=== PATIENT | male | born 1965 | race African-American/Black ===

== ENCOUNTER 2016-08-11 14:53 | Inpatient (IN) | payer MEDICAID ==
[~2016-08-11] VITALS: Ht 177.8 cm; Wt 109.8 kg
[2016-08-11 17:23] LABS: BASOPHILS % 1.3 % (0.0-2.0); EOSINOPHILS % 1.6 % (0.0-5.0); HEMATOCRIT. 45.1 % (42.0-52.0); HEMOGLOBIN. 14.3 g/dL (14.0-18.0); LYMPHOCYTES % 34.8 % (20.0-50.0); MEAN CORPUSCULAR HEMOGLOBIN 20.4 pg (28.0-32.0); MEAN CORPUSCULAR VOLUME 64.4 fL (80.0-94.0); MEAN PLATELET VOLUME 9.4 fl (7.4-10.4); MONOCYTES % 7.6 % (2.0-8.0); NEUTROPHILS % 54.7 % (40.0-76.0); PLATELET 115 x1000/uL (130-400); RED BLOOD CELL COUNT 7.01 mill/uL (4.7-6.1); RED CELL DISTRIBUTION WIDTH 15.8 % (11.6-14.6)
[2016-08-11 17:27] LABS: CHLORIDE 105 mEq/L (98-107)
[2016-08-11 17:28] LABS: INR 1.1; PROTHROMBIN TIME 11.3 sec
[2016-08-11] MEDS ORDERED: HYDRALAZINE 20MG/ML VIAL IV ONE ×2 (17:30→18:45)
[2016-08-11] MEDS ORDERED: CLONIDINE 0.1MG TABLET PO ONE ×2 (17:30→18:45)
[2016-08-11 17:32] LABS: CARBON DIOXIDE 29 mEq/L (21-32)
[2016-08-11 17:36] LABS: TROPONIN I < 0.02 ng/mL (0.00-0.04)
[2016-08-11 18:03] LABS: PLATELET ESTIMATE DECREASED
[2016-08-11] MEDS ORDERED: DILTIAZEM HCL 125 MG in DEXTROSE 5% WATER 125 ML IV PRN (18:45)
[2016-08-11] MEDS ORDERED: SODIUM CHLORIDE 0.9% 1000ML BAG (SEPSIS BOLUS) IV ONE (19:00)
[2016-08-11 21:00] VITALS: BP 160/105
[2016-08-11] MEDS ORDERED: IPRATROPIUM/ALBUTEROL 0.5-3(2.5)MG/3ML NEB INH PRN (23:15)
[2016-08-11] MEDS ORDERED: DOCUSATE SODIUM 100MG CAPSULE PO PRN (23:15)
[2016-08-11] MEDS ORDERED: ACETAMINOPHEN 325MG TABLET PO PRN (23:15)
[2016-08-11] MEDS ORDERED: NICARDIPINE 40MG/200ML PREMIX 200 ML IV SCH (23:15)
[2016-08-11] MEDS ORDERED: MAGNESIUM/ALUMINUM HYDROXIDE/SIMETHICONE 30ML UDC PO PRN (23:15)
[2016-08-11] MEDS ORDERED: ONDANSETRON HCL 4MG/2ML VIAL IV PRN (23:15)
[2016-08-11 23:45] VITALS: BP 155/100
[2016-08-12] VITALS (83 sets, daily range): BP systolic 122–175; BP diastolic 62–120
[2016-08-12 01:16] LABS: CARBON DIOXIDE 27 mEq/L (21-32); CHLORIDE 106 mEq/L (98-107)
[2016-08-12] MEDS: NICARDIPINE 50 MG in SODIUM CHLORIDE 0.9% 230 ML IV PRN ×2 (01:57→18:06)
[2016-08-12] MEDS: LEVETIRACETAM 500 MG in SODIUM CHLORIDE 0.9% 100 ML IV SCH ×2 (02:00→14:31)
[2016-08-12] MEDS: SODIUM CHLORIDE 0.9% 1,000 ML IV SCH ×2 (02:46→18:00)
[2016-08-12 05:55] LABS: BASOPHILS % 1.2 % (0.0-2.0); EOSINOPHILS % 3.3 % (0.0-5.0); HEMATOCRIT. 41.6 % (42.0-52.0); HEMOGLOBIN. 13.1 g/dL (14.0-18.0); LYMPHOCYTES % 33.8 % (20.0-50.0); MEAN CORPUSCULAR VOLUME 63.5 fL (80.0-94.0); MEAN PLATELET VOLUME 9.3 fl (7.4-10.4); NEUTROPHILS % 52.7 % (40.0-76.0); PLATELET 120 x1000/uL (130-400); RED BLOOD CELL COUNT 6.56 mill/uL (4.7-6.1); RED CELL DISTRIBUTION WIDTH 15.7 % (11.6-14.6)
[2016-08-12 06:54] LABS: HEPATITIS B SURFACE ANTIGEN NEGATIVE
[2016-08-12 07:07] LABS: CREATINE KINASE 105 IU/L (39-308); HDL CHOLESTEROL 47 mg/dL (40-59); LDL CHOLESTEROL 80 mg/dL (5-100); TROPONIN I < 0.02 ng/mL (0.00-0.04)
[2016-08-12 07:22] LABS: HEPATITIS B CORE AB IGM NEGATIVE
[2016-08-12 07:24] LABS: HEPATITIS A AB IGM NEGATIVE (NEGATIVE)
[2016-08-12] MEDS ORDERED: POTASSIUM CHLORIDE 20MEQ TABLET SR PO NR (09:15)
[2016-08-12] MEDS: LOSARTAN POTASSIUM 25 MG TABLET PO SCH ×2 (11:03→21:31)
[2016-08-12] MEDS: NEBIVOLOL HCL 5 MG TABLET PO SCH (11:05)
[2016-08-12 12:46] LABS: CLARITY URINE CLEAR (CLEAR); COLOR URINE YELLOW (YELLOW); GLUCOSE URINE NEGATIVE (NEGATIVE); KETONES URINE 1+ (NEGATIVE); LEUKOCYTE ESTERASE URINE NEGATIVE (NEGATIVE); NITRITE URINE POSITIVE (NEGATIVE); OCCULT BLOOD URINE NEGATIVE (NEGATIVE); PROTEIN URINE NEGATIVE (NEGATIVE); SPECIFIC GRAVITY URINE 1.013 (1.005-1.030)
[2016-08-12] MEDS ORDERED: IOHEXOL-350 100 ML BOTTLE ONE (13:11)
[2016-08-12] MEDS ORDERED: SODIUM CHLORIDE 0.9% 10ML VIAL ONE (13:11)
[2016-08-12 13:31] LABS: *AMPHETAMINES SCREEN URINE NEGATIVE (NEGATIVE); *BARBITURATES SCREEN URINE NEGATIVE (NEGATIVE); *BENZODIAZEPINES SCREEN URINE NEGATIVE (NEGATIVE); *COCAINE SCREEN URINE NEGATIVE (NEGATIVE); CANNABINOID URINE SCREEN NEGATIVE (NEGATIVE); METHADONE URINE SCREEN NEGATIVE (NEGATIVE); OPIATES URINE SCREEN NEGATIVE (NEGATIVE); PHENCYCLIDINE URINE SCREEN NEGATIVE (NEGATIVE)
[2016-08-12 16:06] LABS: CREATINE KINASE 84 IU/L (39-308); ETHANOL BLOOD < 10 mg/dL; TROPONIN I < 0.02 ng/mL (0.00-0.04)
[2016-08-13] VITALS (41 sets, daily range): BP systolic 112–168; BP diastolic 65–110
[2016-08-13] MEDS: LEVETIRACETAM 500 MG in SODIUM CHLORIDE 0.9% 100 ML IV SCH ×2 (01:27→14:38)
[2016-08-13] MEDS: SODIUM CHLORIDE 0.9% 1,000 ML IV SCH (06:28)
[2016-08-13] MEDS: NICARDIPINE 50 MG in SODIUM CHLORIDE 0.9% 230 ML IV PRN (07:06)
[2016-08-13] MEDS: NEBIVOLOL HCL 5 MG TABLET PO SCH (08:12)
[2016-08-13] MEDS: LOSARTAN POTASSIUM 25 MG TABLET PO SCH (08:12)
[2016-08-13] MEDS ORDERED: AMLODIPINE 5MG TABLET PO SCH (09:00)
[2016-08-13] MEDS ORDERED: CLONIDINE 0.1MG TABLET PO PRN (10:30)
[2016-08-13] MEDS: NIFEDIPINE XL 60MG TAB PO SCH (18:51)
[2016-08-13] MEDS: HYDRALAZINE 20MG/ML VIAL IV PRN (20:50)
[2016-08-14 00:17] VITALS: BP 146/88
[2016-08-14] MEDS: LEVETIRACETAM 500 MG in SODIUM CHLORIDE 0.9% 100 ML IV SCH ×2 (03:13→13:02)
[2016-08-14 04:00] VITALS: BP 139/99
[2016-08-14] MEDS: NIFEDIPINE XL 60MG TAB PO SCH (05:40)
[2016-08-14] MEDS: HYDRALAZINE 20MG/ML VIAL IV PRN (05:42)
[2016-08-14 05:53] LABS: CARBON DIOXIDE 26 mEq/L (21-32); CHLORIDE 106 mEq/L (98-107)
[2016-08-14 07:24] LABS: BASOPHILS % 1.1 % (0.0-2.0); EOSINOPHILS % 2.7 % (0.0-5.0); HEMATOCRIT. 44.3 % (42.0-52.0); HEMOGLOBIN. 14.1 g/dL (14.0-18.0); LYMPHOCYTES % 32.7 % (20.0-50.0); MEAN CORPUSCULAR HEMOGLOBIN 20.2 pg (28.0-32.0); MEAN CORPUSCULAR VOLUME 63.8 fL (80.0-94.0); MEAN PLATELET VOLUME 9.3 fl (7.4-10.4); MONOCYTES % 12.3 % (2.0-8.0); NEUTROPHILS % 51.2 % (40.0-76.0); PLATELET 137 x1000/uL (130-400); RED BLOOD CELL COUNT 6.95 mill/uL (4.7-6.1); RED CELL DISTRIBUTION WIDTH 15.8 % (11.6-14.6)
[2016-08-14 08:00] VITALS: BP 139/86
[2016-08-14] MEDS ORDERED: NIFEDIPINE XL 60MG TAB PO SCH (10:30)
[2016-08-14] MEDS ORDERED: LOSARTAN POTASSIUM 50 MG TABLET PO SCH (10:30)
[2016-08-14 12:00] VITALS: BP 150/100
[2016-08-14] MEDS ORDERED: KEPP500 PO (12:09)
[2016-08-14] MEDS ORDERED: LOSA50TA3 PO (12:09)
[2016-08-14] MEDS ORDERED: NIFE60TA64 PO (12:09)
[2016-08-14 15:12] VITALS: BP 148/106
[2016-08-14 15:40] VITALS: BP 148/106
== END 2016-08-14 13:45 | disposition home or self-care (01) | DRG 44 ==
LOC: ER 15:28 → EDBEDREQ 18:47 → ENRESERV 19:51 → 5WST 20:40 → MICUNO 23:30 → 6WST 08-13 16:33
PROVIDERS: ADMIT Internal Medicine; ATTEND Internal Medicine
DX: I61.8 Other nontraumatic intracerebral hemorrhage (principal); D69.6 Thrombocytopenia, unspecified; I15.8 Other secondary hypertension; I16.0 Hypertensive urgency; Z91.14 Patient's other noncompliance with medication regimen; D75.1 Secondary polycythemia; F17.210 Nicotine dependence, cigarettes, uncomplicated; Z91.19 Patient's noncompliance with other medical treatment and regimen; Z87.442 Personal history of urinary calculi; Z82.49 Family history of ischemic heart disease and other diseases of the circulatory system; I10 Essential (primary) hypertension
CPT/HCPCS: 36415; 70450; 70496; 70551; 71010; 80048; 80053; 80061; 80305; 81001; 82550; 82553; 83605; 83735; 83880; 84443; 84484; 85025; 85610; 86705; 86709; 86803; 87186; 87340; 93005; 93306; 93970; 96374; 96376; 97162; 97165; 99291; A4216; G0482; J0360; J1953; J3490; J7030; J7050; J7060; Q9967